=== PATIENT | female | born 1950 | race Caucasian/White ===

== ENCOUNTER → 2019-05-04 | Outpatient (CLI) | payer MEDICARE ==
--- NOTE | 2019-05-04 14:53 | RAD ---
EXAM DESCRIPTION: Ankle,Right 3 Views CLINICAL HISTORY: [id number] ankle pain COMPARISON: None. IMPRESSION: 3 views of the right ankle shows diffuse osteopenia the osseous structures without acute fracture, focal bone destruction, or joint dislocation. Mild soft tissue swelling of the ankle. Increased density in the expected location of the tibiotalar joint suggesting joint effusion. Mild osseous body anterior to the distal tibia likely represents osteoarthritic changes. Electronically signed by: Isaiah Singh MD 05/04/2019 2:51 PM CDT
== END ==
LOC: RAD 09:11
PROVIDERS: ATTEND Orthopaedic Surgery
DX: M25.571 Pain in right ankle and joints of right foot (principal); M85.871 Other specified disorders of bone density and structure, right ankle and foot

== ENCOUNTER → 2020-04-24 | Outpatient (CLI) | payer MEDICARE | LOC: LAB.O 04-23 12:55 | PROVIDERS: ATTEND Family Medicine | DX: E03.9 Hypothyroidism, unspecified (principal); I10 Essential (primary) hypertension; N18.3 Chronic kidney disease, stage 3 (moderate) ==